=== PATIENT | male | born 1950 | race Caucasian/White ===

== ENCOUNTER 2018-02-15 21:47 | Observation (INO) ==
[2018-02-15 22:23] LABS: Basophils # 0.1 10*3/uL (0.0-0.2); Basophils % 0.7 % (0.0-0.8); Eosinophils # 0.5 10*3/uL (0.0-0.87); Eosinophils % 3.7 % (0.00-10.9); Hematocrit 37.7 VOL% (42.0-52.0); Hemoglobin 12.7 GM/DL (14.0-18.0); Immature Granulocytes % 0.5 %; Immature Granulocytes Absolute 0.08 #; Lymphocytes # 4.6 10*3/uL (1.4-4.0); Mean Corpuscular HGB Conc 33.7 GM/DL (32-36); Mean Corpuscular Hemoglobin 32 PG (27-34); Mean Corpuscular Volume 94.7 FL (87-102); Mean Platelet Volume 8.9 FL (9.6-12.0); Monocytes # 1.1 10*3/uL (0.11-0.8); Monocytes % 7.4 % (1.7-12.7); Neutrophils # 8.3 10*3/uL (1.4-7.4); Neutrophils % 56.7 % (38.7-73.9); Platelet Count 342 T/CUMM (130-400); Red Blood Count 3.98 MC/CUMM (3.8-5.5); Red Cell Distribution Width 13.3 % (9.3-17.3); White Blood Count 14.7 T/CUMM (4-12)
[2018-02-15 22:37] LABS: INR 0.9; PT Patient Result 9.9 SECS; Partial Thromboplastin Time 23.4 SECS (0-40)
[2018-02-15 23:07] LABS: Bilirubin,Total 0.4 MG/DL (0.2-1.0); Osmolality,Calculated 272.1 MOS/KG (273-304); Potassium 3.7 MMOL/L (3.5-5.1); Total Protein 7.9 G/DL (6.4-8.3)
[2018-02-16] MEDS ORDERED: ONDANSETRON 4 MG/2 ML VIAL IV STA (00:10)
[2018-02-16] MEDS ORDERED: ORPHENADRINE 60 MG/2 ML VIAL IV STA (00:10)
[2018-02-16] MEDS ORDERED: MORPHINE 4 MG/1 ML VIAL IM STA (01:45)
[2018-02-16] MEDS ORDERED: GLUCAGON 1 MG VIAL IM PRN (03:16)
[2018-02-16] MEDS ORDERED: DEXTROSE 50% 25 GM/50 ML VIAL IV PRN (03:16)
[2018-02-16] MEDS ORDERED: SODIUM CHLORIDE 0.45% 1,000 ML IV SCH (03:16)
[2018-02-16] MEDS ORDERED: ONDANSETRON 4 MG/2 ML VIAL IV PRN (03:16)
[2018-02-16] MEDS ORDERED: ACETAMINOPHEN 325 MG TABLET PO PRN (03:16)
[2018-02-16] MEDS ORDERED: INFLUENZA VIRUS VACCINE 0.5 ML SYRINGE IM ONE (03:34)
[2018-02-16] MEDS: LEVOFLOXACIN INJ 500 MG in PREMIX 1 EACH IV SCH (04:36)
[2018-02-16] MEDS ORDERED: MORPHINE 4 MG/1 ML VIAL IV ONE ×2 (05:22→06:30)
[2018-02-16 06:44] LABS: Apearance,Urine Slightly Hazy (Clear); Bacteria,Urine Occasional /HPF (Few); Bilirubin,Urine Negative (Negative); Blood, Urine Negative (Negative); Glucose,Urine (UA) Negative (Negative); Hyaline Casts,Urine 5 /LPF (0-3); Ketones,Urine Negative (Negative); Mucus,Urine Few /LPF (Occasional); Nitrite,Urine Negative (Negative); Protein,Urine 30 MG/DL; RBC,Urine 4 /HPF (0-4); Squamous Epithelial Cell,Urine Occasional /HPF (0-10); Urine Color Amber (Yellow); Urine Specific Gravity 1.025 (1.001-1.035); WBC,Urine 1 /HPF (0-6)
[2018-02-16 06:48] LABS: Basophils # 0.1 10*3/uL (0.0-0.2); Basophils % 0.9 % (0.0-0.8); Eosinophils # 0.4 10*3/uL (0.0-0.87); Eosinophils % 3.6 % (0.00-10.9); Hematocrit 37.1 VOL% (42.0-52.0); Hemoglobin 12.1 GM/DL (14.0-18.0); Immature Granulocytes % 0.5 %; Immature Granulocytes Absolute 0.06 #; Lymphocytes % 34.5 % (21.2-54.2); Mean Corpuscular HGB Conc 32.6 GM/DL (32-36); Mean Corpuscular Hemoglobin 31 PG (27-34); Mean Corpuscular Volume 94.6 FL (87-102); Mean Platelet Volume 9.1 FL (9.6-12.0); Monocytes % 8.2 % (1.7-12.7); Neutrophils # 6.1 10*3/uL (1.4-7.4); Neutrophils % 52.3 % (38.7-73.9); Platelet Count 342 T/CUMM (130-400); Red Blood Count 3.92 MC/CUMM (3.8-5.5); Red Cell Distribution Width 13.5 % (9.3-17.3); White Blood Count 11.7 T/CUMM (4-12)
[2018-02-16 06:58] LABS: Calcium 8.5 MG/DL (8.5-10.1); Potassium 4.1 MMOL/L (3.5-5.1)
[2018-02-16 07:04] LABS: Risk Ratio 2.64; VLDL CHOLESTEROL 25.8 MG/DL
[2018-02-16] MEDS: INSULIN LISPRO 100 UNIT/ML SUBCUT SCH ×2 (08:32→16:35)
[2018-02-16] MEDS: ASPIRIN 325 MG TABLET PO SCH (08:34)
[2018-02-16] MEDS: PANTOPRAZOLE 40 MG TABLET PO SCH (08:34)
[2018-02-16] MEDS: ENOXAPARIN 40 MG/0.4 ML SYRINGE SUBCUT SCH (08:35)
[2018-02-16] MEDS ORDERED: GABAPENTIN 400 MG CAPSULE PO SCH (09:00)
[2018-02-16] MEDS ORDERED: amLODIPine 5 MG TABLET PO SCH (09:00)
[2018-02-16] MEDS ORDERED: ATORVASTATIN 40 MG TABLET PO SCH (09:00)
[2018-02-16] MEDS ORDERED: DULoxetine 30 MG CAPSULE PO SCH ×2 (09:00)
[2018-02-16] MEDS ORDERED: GABAPENTIN 600 MG TABLET PO SCH (09:00)
[2018-02-16] MEDS: ATORVASTATIN 40 MG TABLET PO SCH (09:29)
[2018-02-16] MEDS: amLODIPine 5 MG TABLET PO SCH (09:29)
[2018-02-16] MEDS: LISINOPRIL 20 MG TABLET PO SCH (09:53)
[2018-02-16] MEDS: MORPHINE 4 MG/1 ML VIAL IV PRN ×2 (14:05→20:33)
[2018-02-16] MEDS: GABAPENTIN 300 MG CAPSULE PO SCH ×2 (15:23→20:38)
[2018-02-16] MEDS: TAMSULOSIN 0.4 MG CAPSULE PO SCH (20:37)
[2018-02-16] MEDS: AMITRIPTYLINE 50 MG TABLET PO SCH (20:38)
[2018-02-16] MEDS: traZODone 50 MG TABLET PO SCH (20:38)
[2018-02-17] MEDS: LEVOFLOXACIN INJ 500 MG in PREMIX 1 EACH IV SCH (05:20)
[2018-02-17] MEDS: INSULIN LISPRO 100 UNIT/ML SUBCUT SCH ×2 (07:52→18:17)
[2018-02-17] MEDS: LISINOPRIL 20 MG TABLET PO SCH (08:59)
[2018-02-17] MEDS: GABAPENTIN 300 MG CAPSULE PO SCH ×3 (08:59→23:05)
[2018-02-17] MEDS: ASPIRIN 325 MG TABLET PO SCH (08:59)
[2018-02-17] MEDS: amLODIPine 5 MG TABLET PO SCH (09:00)
[2018-02-17] MEDS: ENOXAPARIN 40 MG/0.4 ML SYRINGE SUBCUT SCH (09:00)
[2018-02-17] MEDS: DULoxetine 30 MG CAPSULE PO SCH (09:00)
[2018-02-17] MEDS: ATORVASTATIN 40 MG TABLET PO SCH (09:00)
[2018-02-17] MEDS: PANTOPRAZOLE 40 MG TABLET PO SCH (09:00)
[2018-02-17] MEDS: MORPHINE 4 MG/1 ML VIAL IV PRN ×3 (13:20→23:15)
[2018-02-17] MEDS: TAMSULOSIN 0.4 MG CAPSULE PO SCH (23:04)
[2018-02-17] MEDS: traZODone 50 MG TABLET PO SCH (23:04)
[2018-02-17] MEDS: AMITRIPTYLINE 50 MG TABLET PO SCH (23:05)
[2018-02-18] MEDS: LEVOFLOXACIN INJ 500 MG in PREMIX 1 EACH IV SCH (04:00)
[2018-02-18] MEDS: MORPHINE 4 MG/1 ML VIAL IV PRN (06:10)
[2018-02-18] MEDS: ENOXAPARIN 40 MG/0.4 ML SYRINGE SUBCUT SCH (10:02)
[2018-02-18] MEDS: ASPIRIN 325 MG TABLET PO SCH (10:03)
[2018-02-18] MEDS: amLODIPine 5 MG TABLET PO SCH (10:03)
[2018-02-18] MEDS: LISINOPRIL 20 MG TABLET PO SCH (10:03)
[2018-02-18] MEDS: DULoxetine 30 MG CAPSULE PO SCH (10:03)
[2018-02-18] MEDS: ATORVASTATIN 40 MG TABLET PO SCH (10:04)
[2018-02-18] MEDS: PANTOPRAZOLE 40 MG TABLET PO SCH (10:04)
[2018-02-18] MEDS: GABAPENTIN 300 MG CAPSULE PO SCH (10:04)
[2018-02-18] MEDS: INSULIN LISPRO 100 UNIT/ML SUBCUT SCH (10:04)
[2018-02-18 12:09] VITALS: BP 124/68
== END 2018-02-18 13:10 | disposition home or self-care (01) ==
LOC: N.ED 21:47 → N.EDINP 21:47 → SUATTDRO 02-16 01:43 → N.2E 02-16 02:08
PROVIDERS: ADMIT Internal Medicine Cardiovascular Disease; ATTEND Internal Medicine